=== PATIENT | male | born 1950 | race Hispanic/Latino ===

== ENCOUNTER 2018-07-01 03:53 | Emergency (ER) | payer OTHER ==
[2018-07-01] MEDS ORDERED: LIDOCAINE HCL 2% VISCOUS 15 ML UDCUP ONE (04:55)
[2018-07-01] MEDS ORDERED: DICYCLOMINE HCL 10 MG/5 ML ML PO ONE (04:55)
[2018-07-01] MEDS ORDERED: ONDANSETRON HCL 4 MG/2 ML VIAL ONE (04:55)
[2018-07-01] MEDS ORDERED: MAG HYDROX/AL HYDROX/SIMETH ES 30 ML SUSP UDCUP ONE (04:55)
[2018-07-01 05:19] LABS: BASOPHILS % (AUTO) 0.8 % (0.0-5.0); EOSINOPHILS % (AUTO) 10.6 % (0.0-8.0); HEMATOCRIT 51.6 % (42-54); LYMPHOCYTES % (AUTO) 11.5 % (21.0-51.0); MEAN CORPUSCULAR HEMOGLOBIN 31.7 pg (27.0-33.0); MEAN CORPUSCULAR HGB CONC 33.7 g/dL (32.0-36.0); MONOCYTES % (AUTO) 5.9 % (3.0-13.0); NEUTROPHILS % (AUTO) 71.2 % (40.0-77.0); PLATELET COUNT (AUTO) 280 K/uL (130-400); RED BLOOD CELL COUNT(AUTO) 5.49 MIL/uL (4.50-6.20); WHITE BLOOD COUNT (AUTO) 15.2 K/uL (4.8-10.8)
[2018-07-01 05:27] LABS: BILIRUBIN,URINE Small (NEGATIVE); COLOR,URINE Dark Yellow (YELLOW); GLUCOSE, URINE (UA) Negative (NEGATIVE); KETONES,URINE Trace mg/dL (NEGATIVE); LEUKOCYTE ESTERASE ,URINE Negative (NEGATIVE); NITRATE,URINE Negative (NEGATIVE); OCCULT BLOOD,URINE Negative (NEGATIVE); PROTEIN,URINE POS 1+ (NEGATIVE)
[2018-07-01 05:28] LABS: APPEARANCE,URINE SLIGHTLY CLOUDY (CLEAR)
[2018-07-01 05:42] LABS: BACTERIA,URINE Few /HPF (None Seen); CALCIUM OXALATE CRYSTALS,UR Many /LPF (None Seen); RBC,URINE 0-1 /HPF (0-1); WBC,URINE 0-1 /HPF (0-1)
[2018-07-01 05:45] LABS: CREATININE 1.1 mg/dL (0.5-1.5); POTASSIUM 3.4 mmol/L (3.5-5.1)
[2018-07-01 05:49] LABS: ALBUMIN 3.6 g/dL (3.5-5.0); BILIRUBIN,DIRECT 0.1 mg/dL (0.0-0.3); BILIRUBIN,TOTAL 0.3 mg/dL (0.2-1.0); TOTAL PROTEIN, SERUM 7.4 g/dL (6.0-8.3)
[2018-07-01] MEDS ORDERED: KETOROLAC TROMETHAMINE 30MG/ML ONE (06:04)
== END 2018-07-01 07:19 | disposition home or self-care (01) ==
LOC: EDH 03:53
DX: R10.13 Epigastric pain (principal); R63.0 Anorexia; R11.0 Nausea; E78.5 Hyperlipidemia, unspecified; K21.9 Gastro-esophageal reflux disease without esophagitis; E07.9 Disorder of thyroid, unspecified
CPT/HCPCS: 36415; 74176; 76705; 80048; 80076; 81001; 83690; 84484; 85025; 93005; 96374; 96375; 99285; J1885; J2405

== ENCOUNTER 2025-02-04 13:15 | Emergency (ER) | payer OTHER ==
[~2025-02-04] VITALS: Ht 167.6 cm; Wt 80.7 kg
[~2025-02-04 13:15] MED LIST: GUAI600T50 PO; PRED20TA3 PO
--- NOTE | 2025-02-04 14:06 | NUR ---
PENDING GFR RESULTS, IV SITE, & CONSENT FOR CT EXAM.
[2025-02-04 14:13] LABS: APPEARANCE,URINE CLOUDY (CLEAR); BILIRUBIN,URINE NEGATIVE (NEGATIVE); COLOR,URINE YELLOW (YELLOW); GLUCOSE, URINE (UA) NEGATIVE (NEGATIVE); KETONES,URINE 5 mg/dL (NEGATIVE); LEUKOCYTE ESTERASE ,URINE NEGATIVE Leu/uL (NEGATIVE); NITRATE,URINE NEGATIVE (NEGATIVE); OCCULT BLOOD,URINE LARGE (NEGATIVE); PROTEIN,URINE 30 mg/dL (NEGATIVE); UROBILINOGEN,URINE 0.2 mg/dL (0.2-1.0)
[2025-02-04 14:18] LABS: ADD UA MICROSCOPIC YES
[2025-02-04 14:19] LABS: BASOPHILS # (AUTO) 0.05 K/uL (0.00-0.20); BASOPHILS % (AUTO) 0.4 % (0.0-5.0); EOSINOPHILS # (AUTO) 0.01 K/uL (0.00-0.70); EOSINOPHILS % (AUTO) 0.1 % (0.0-8.0); HEMATOCRIT 45.7 % (42-54); IMMATURE GRANULOCYTE ABSOLUTE 0.06 K/uL (0-1); LYMPHOCYTES % (AUTO) 8.5 % (21.0-51.0); MEAN CORPUSCULAR HEMOGLOBIN 30.9 pg (27.0-33.0); MEAN CORPUSCULAR HGB CONC 33.7 g/dL (32.0-36.0); MEAN CORPUSCULAR VOLUME 91.8 fL (79-99); MONOCYTES # (AUTO) 0.5 K/uL (0.1-1.0); MONOCYTES % (AUTO) 3.7 % (3.0-13.0); NEUTROPHILS # (AUTO) 10.6 K/uL (1.8-7.7); NEUTROPHILS % (AUTO) 86.8 % (40.0-77.0); PLATELET COUNT (AUTO) 237 K/uL (130-400); RED BLOOD CELL COUNT(AUTO) 4.98 MIL/uL (4.50-6.20); RED CELL DISTRIBUTION WIDTH 13.2 % (11.0-15.5); WHITE BLOOD COUNT (AUTO) 12.2 K/uL (4.8-10.8)
[2025-02-04] MEDS: 0.9%NACL 1000ML 1,000 ML IV ONE (14:19)
[2025-02-04] MEDS: ZOSYN 3.375GM +NS 50ML IVPB ONE (14:19)
[2025-02-04] MEDS: ketOROlac 15MG/ML VIAL (15MG/ML) IV ONE (14:20)
[2025-02-04 14:22] LABS: BACTERIA,URINE RARE /HPF (None Seen); MUCUS,URINE RARE LPF (None Seen); RBC,URINE TNTC /HPF (0-1); SQUAMOUS EPITHELIAL CELL,UR RARE /HPF (0-2)
[2025-02-04 14:28] LABS: CREATININE 1.1 mg/dL (0.5-1.3)
[2025-02-04 14:33] LABS: ALBUMIN 4.5 g/dL (3.5-5.0); BILIRUBIN,TOTAL 0.5 mg/dL (0.2-1.0)
[2025-02-04] MEDS ORDERED: IOHEXOL-350 75 ML VIAL IV ONE (14:40)
--- NOTE | 2025-02-04 15:17 | HMCIMG ---
CT ABDOMEN/PELVIS W/CONTRAST HISTORY: Left lower abdominal pain COMPARISON: None TECHNIQUE: Multiple sequential axial images of the abdomen and pelvis were obtained from the dome of the diaphragm through symphysis pubis. Patient was not given contrast through intravenous route. Oral contrast was not given. FINDINGS: No pleural effusion is seen bilaterally. There is no evidence of parenchymal disease or pulmonary nodule of the visualized lower lungs. Degenerative changes of the thoracolumbar spine are present. The heart is not enlarged. Liver is enlarged measuring 18 cm. Gallbladder is moderately distended. There is fluid-filled small bowel loops and colon may be related to enterocolitis. The liver, spleen, adrenal glands and pancreas are unremarkable. There is no evidence of hydronephrosis bilaterally. Small right renal cortical calcifications are again seen unchanged. Fecal material is seen in the colon. There are normal size retroperitoneal and mesenteric lymph nodes. No ascites is seen. Atherosclerotic changes are present. No CT evidence of acute appendicitis is seen. There is mild duct stenosis. Pelvic sidewalls are symmetric bilaterally. The bladder is poorly distended. There are small bilateral inguinal hernias with fat content. IMPRESSION: 1. There is fluid-filled small bowel loops and colon may be related to enterocolitis. CT was performed with one or more following dose reduction techniques: automated exposure control, adjustment of the mA and kv according to patient's size, or use of a iterative reconstruction technique.
[2025-02-04 15:41] VITALS: BP 141/72; PULSE 88; RESP 17; TEMP 97.7; O2SAT 96
[2025-02-04] MEDS ORDERED: TAMS-55 PO (15:42)
[2025-02-04] MEDS ORDERED: CEPH500T PO (15:42)
--- NOTE | 2025-02-04 15:42 | ERN ---
ED Note History of Present Illness Stated Complaint: ABD PAIN Chief Complaint: Abdominal Pain Time Seen by MD: 13:24 Time Seen by Midlevel: 13:25 Dictation: 74-year-old male presents to the emergency department due to reported having pain to the left lower quadrant that is slightly radiates to the left flank that began yesterday. He states that it has been intermittent with it started again earlier this morning. Initially, she rated the pain as a 10/10. As of now, he still states the pain is a 10/10. Patient states that the pain is a colicky type of sensation. There is no report of any fever, chills, nausea, vomiting or diarrhea associated with this. Upon initial evaluation, the patient presents mildly uncomfortable looking. Allergies: Coded Allergies: aspirin (Unverified Allergy, Unknown, 11/26/23) Emergency Care [facility]OD[place]: None Home Meds Active Scripts Guaifenesin (Mucinex) 600 Mg Tablet.er, 600 MG PO TID for 7 Days, #21 TAB Prov:SHAHLA CHAWLA PEARL GLUE DRIER 11/26/23 Prednisone (Prednisone) 20 Mg Tablet, 2 TAB PO DAILY for 5 Days, #10 TAB 0 Refills Prov:CHAWLAMARYLUSHAHLA PEARL GLUE DRIER 11/26/23 Past Medical History Past Medical History: COPD, High Cholesterol, Hypertension Surgical History: None Family History: Negative Social History: Negative, Lives with family Review of System Dictation Constitutional: Negative for fever,chills, and weight loss Eyes: Negative for injury, pain,redness, and discharge ENT: Negative for injury,pain or swelling Cardiovascular: Negative for chest pain, palpitations, and edema Respiratory: Negative for shortness of breath, cough, and wheezing, Abdomen/GI: Left lower quadrant pain Back: Negative for injury and pain : Negative for injury, bleeding and discharge MS/Extremity: Negative for injury and deformity Skin: Negative for rash, and discoloration Neuro: Negative for headache, weakness, numbness, tingling, and seizure Psych: Negative for suicide ideation, homicidal ideation, and hallucinations Initial Vital Sign VS Vital Signs Date Time Temp Pulse Resp B/P (MAP) Pulse Ox O2 Delivery O2 Flow Rate FiO2 02/04/25 13:23 98.1 72 18 155/79 98 Room Air 02/04/25 14:12 0 21 Physical Exam Dictation General: awake, alert, NAD Head/Face: Normocephalic, atraumatic Eyes: PERRL, EOMI ENT: Oral mucosa moist Neck: Trachea midline, supple Cardiovascular: RRR, no edema Respiratory: Symmetrical, non-labored Abdomen: Soft, left lower quadrant tenderness with voluntary guarding, mild left CVA tenderness, non-distended, no guarding. Skin: Warm, dry, good turgor, no rash MS/Extremity: Pulses equal, no cyanosis, neurovascular intact, FROM Neuro: COAx4, GCS 15, steady gait, Psych: Normal behavior, mood, and affect normal Results (Laboratory/Radiology) Laboratory/Radiology Laboratory Tests Test 02/04/25 13:47 02/04/25 14:06 Urine Color YELLOW (YELLOW) Urine Appearance CLOUDY (CLEAR) H Urine pH 8.0 (5.0-8.0) Urine Specific [place] 1.023 (1.001-1.031) Urine Protein 30 mg/dL (NEGATIVE) H Urine Glucose (UA) NEGATIVE mg/dL (NEGATIVE) Urine Ketones 5 mg/dL (NEGATIVE) H Urine Occult Blood LARGE (NEGATIVE) H Urine Nitrate NEGATIVE (NEGATIVE) Urine Bilirubin NEGATIVE mg/dL (NEGATIVE) Urine Urobilinogen 0.2 mg/dL (0.2-1.0) Urine Leukocyte Esterase NEGATIVE Debbie/uL Urine RBC TNTC /HPF (0-1) H Urine WBC 6-10 /HPF (0-1) H Urine Squamous Epithelial Cells RARE /HPF (0-2) Urine Bacteria RARE /HPF (None Seen) White Blood Count 12.2 K/uL (4.8-10.8) H Red Blood Count 4.98 MIL/uL (4.50-6.20) Hemoglobin 15.4 g/dL (14.0-18.0) Hematocrit 45.7 % (42-54) Mean Corpuscular Volume 91.8 fL (79-99) Mean Corpuscular Hemoglobin 30.9 pg (27.0-33.0) Mean Corpuscular Hemoglobin Concent 33.7 g/dL (32.0-36.0) Red Cell Distribution Width 13.2 % (11.0-15.5) Platelet Count 237 K/uL (130-400) Mean Platelet Volume 9.0 fL (7.5-10.5) Immature Granulocyte % (Auto) 0.5 % (0-1) Neutrophils (%) (Auto) 86.8 % (40.0-77.0) H Lymphocytes (%) (Auto) 8.5 % (21.0-51.0) L Monocytes (%) (Auto) 3.7 % (3.0-13.0) Eosinophils (%) (Auto) 0.1 % (0.0-8.0) Basophils (%) (Auto) 0.4 % (0.0-5.0) Neutrophils # (Auto) 10.6 K/uL (1.8-7.7) H Lymphocytes # (Auto) 1.0 K/uL (1.0-4.8) Monocytes # (Auto) 0.5 K/uL (0.1-1.0) Eosinophils # (Auto) 0.01 K/uL (0.00-0.70) Basophils # (Auto) 0.05 K/uL (0.00-0.20) Absolute Immature Granulocyte (auto 0.06 K/uL (0-1) Nucleated Red Blood Cells 0.0 % (0.0-0.19) White Cell Morphology Comment See comments Sodium Level 138 mmol/L (136-145) Potassium Level 4.0 mmol/L (3.5-5.1) Chloride Level 98 mmol/L (101-111) L Carbon Dioxide Level 31 mmol/L (21-32) Blood Urea Nitrogen 14 mg/dL (7-18) Creatinine 1.1 mg/dL (0.5-1.3) Glomerular Filtration Rate Calc 71 mL/min (>90) Random Glucose 137 mg/dL (70-105) H Total Calcium 9.4 mg/dL (8.5-10.1) Total Bilirubin 0.5 mg/dL (0.2-1.0) Aspartate Amino Transf (AST/SGOT) 45 U/L (10-37) H Alanine Aminotransferase (ALT/SGPT) 66 U/L (12-78) Alkaline Phosphatase 71 U/L (50-136) Total Protein 8.0 g/dL (6.0-8.3) Albumin 4.5 g/dL (3.5-5.0) Labs Reviewed?: Yes CT Scan Comment: CT abdomen/pelvis with IV contrast with no pertinent findings. ED Course ED Course Orders Procedure Category Date Status Time Cbc With Differential LAB 02/04/25 Complete 13:51 Comprehensive LAB 02/04/25 Complete Metabolic Panel 13:51 Urinalysis Profile LAB 02/04/25 Complete 13:51 Saline Lock Iv CPOE 02/04/25 Transmitted 13:51 Ketorolac PHA 02/04/25 Complete Tromethamine 15mg/Ml 14:00 Ct Abdomen/Pelvis CT 02/04/25 Resulted W/Contrast 13:51 Zosyn 3.375gm+Ns 50ml PHA 02/04/25 Complete (Zosyn 3.375gm+Ns 14:30 0.9%Nacl 1000ml (Ns PHA 02/04/25 Complete 1000ml) 14:30 Culture Urine WESLEY 02/04/25 In Process 14:22 Iohexol (Omnipaque) PHA 02/04/25 Complete 14:40 Current Medications Medications (Trade) Dose Ordered Sig/Matt Route PRN Reason Start Time Stop Time Status Last Admin Dose Admin Iohexol (Omnipaque) 75 ml STK-MED ONCE IV 02/04/25 14:40 02/04/25 14:40 DC Ketorolac Tromethamine (toRADol) 15 mg ONCE ONCE IV 02/04/25 14:00 02/04/25 14:01 DC 02/04/25 14:20 Piperacillin Sod/ Tazobactam Sod (Zosyn 3.375gm+NS 50ml) 3.375 gm ONCE ONCE IVPB 02/04/25 14:30 02/04/25 14:31 DC 02/04/25 14:19 Sodium Chloride 1,000 ml @ 0 mls/hr ONCE ONCE IV 02/04/25 14:30 02/04/25 14:31 DC 02/04/25 14:19 Vital Signs Date Time Temp Pulse Resp B/P (MAP) Pulse Ox O2 Delivery O2 Flow Rate FiO2 02/04/25 14:12 98.8 67 18 150/77 95 Room Air* 0 21 02/04/25 13:23 98.1 72 18 155/79 98 Room Air Medical Decision Making MDM MDM: Differential diagnosis: Acute diverticulitis, ureteral stone, abdominal pain. Rationale: Tests considered and ordered secondary to shared decision making include: Previous outside records reviewed: Old ER visits. Risk of complication and/or morbidity or mortality of patient management: None Medications-Per medication reconciliation Need for hospitalization: Patient does not meet criteria for hospitalization. Need for emergency major/minor surgery: No There are no social concerns with this patient. Prescription drug management Prescriptions will include symptomatic care Patient's prior external medical records from other ER visits were reviewed by me as indicated. Prior testing and results from previous visits were reviewed. Prior tests were taken into account with medical decision making and resource utilization, independent historian/historians were used to obtain complete medical history. I independently interpreted the test that were performed, results were reviewed by me and considered findings on radiology if ordered. Medical management and examination interpretation discussions were had by me with other qualified healthcare professionals as indicated for the patient's care. DX & DISP Disposition: Discharge Departure Impression: Primary Impression: Acute abdominal pain Additional Impression: Acute UTI Condition: Stable Scripts Tamsulosin HCl (Flomax) 0.4 Mg Cap.er.24h 0.4 MG PO DAILY, #30 CAPSULE. Prov: ROXANNE BAY 02/04/25 Cephalexin (Cephalexin) 500 Mg Tablet 1 TAB PO BID for 7 Days, #20 TAB 0 Refills Prov: ROXANNE BAY 02/04/25 Referrals: ISABEL YOUNG MD (PCP) ROXANNE BAY February 04, 2025 15:42
--- NOTE | 2025-02-04 15:49 | NUR ---
PT AAOX 4, PT STABLE NO DISTRESS VITALS WNL NO C/O PAIN NOW, PT IV REMOVED, CATHETER INTACT PT GIVEN INSTRUCTIONS VERBALIZED UNDERSTANDING, PT HAS RX SENT TO [facility] WILL START TODAY, PT DRIVEN HOME BY .
== END 2025-02-04 17:00 | disposition home or self-care (01) ==
LOC: EDH 13:15
DX: R10.32 Left lower quadrant pain (principal); N39.0 Urinary tract infection, site not specified; E78.00 Pure hypercholesterolemia, unspecified; I10 Essential (primary) hypertension; J44.9 Chronic obstructive pulmonary disease, unspecified; Z79.52 Long term (current) use of systemic steroids; Z88.6 Allergy status to analgesic agent
CPT/HCPCS: 99285; 74177; 96365; 96366; 96375; 80053; 85025; 87086; 81001; 36415; J1885; J2543; Q9967